=== PATIENT | male | born 1950 | race Caucasian/White ===

== ENCOUNTER 2016-11-25 16:07 | Emergency (ER) | payer OTHER ==
[~2016-11-25] VITALS: Ht 182.9 cm; Wt 102.1 kg
[~2016-11-25 16:07] MED LIST: ACETAMINOPHEN325 M1 PO; AGGRENOX 25 MG1 EACH PO; AMITRIPTYLINE H50 M3 PO; AMITRIPTYLINE H50 M4 PO; AMITRIPTYLINE100 MG PO; ARTIFICIAL TEAR15 M1 OPHTHALMIC; ASPIRIN EC81 M1 PO; BAYER CHEWABLE81 MG PO; CARVEDILOL12.5 MG PO; CELEXA 20 MG TA20 M1 PO; CLONAZEPAM 1 MG1 M1 PO; CLOTRIMAZOLE-BE15 GM TOP; COLACE100 MG PO; COZAAR100 MG PO; CYCLOBENZAPRINE5 MG PO; FISH OIL 1,001000 M1 PO; FISH OIL-OMEGA1 EACH PO; FLEXERIL PO; GLUCOPHAGE1000 MG PO; GLUCOPHAGE500 MG PO; KEFLEX500 MG PO; LEVEMIR SUBQ; MELATONIN10 M1 PO; METOPROLOL SUCC25 M1; NEURONTIN 300M300 M2 PO; NORCO 5-325 TA1 EACH PO; PERCOCET 10-321 EACH PO; PLAVIX 75 MG TA75 M1 PO; PRAVACHOL40 MG PO; RESTORIL30 MG PO; SIMVASTATIN40 MG PO; TOPROL XL50 MG PO; TRADJENTA5 MG PO; TRILIPIX135 MG PO; TYLENOL325 MG PO
== END 2016-11-25 18:34 | disposition home or self-care (01) ==
LOC: ER 16:07
DX: S16.1XXA Strain of muscle, fascia and tendon at neck level, initial encounter (principal); S09.90XA Unspecified injury of head, initial encounter; E11.9 Type 2 diabetes mellitus without complications; I10 Essential (primary) hypertension; G47.30 Sleep apnea, unspecified; I63.9 Cerebral infarction, unspecified; E78.5 Hyperlipidemia, unspecified; Z88.8 Allergy status to other drugs, medicaments and biological substances; W18.30XA Fall on same level, unspecified, initial encounter; Y93.89 Activity, other specified; Y92.89 Other specified places as the place of occurrence of the external cause; Y99.9 Unspecified external cause status

== ENCOUNTER 2016-12-08 16:40 | Emergency (ER) | payer OTHER ==
[~2016-12-08] VITALS: Ht 182.9 cm; Wt 100.7 kg
--- NOTE | ~2016-12-08 | EKG ---
[place] [address] [facility] [place] [address] ELECTROCARDIOGRAM REPORT Name: JONATAN MYERS [id number] Admission: 12/08/16 Attend Phys: Discharge: 12/08/16 Date of : 54 Report #: [id number] THIS REPORT FOR: //name// [facility] ED Test Date: 2016-12-08 Test Time: 17:51:23 Pat Name: JONATAN MYERS Department: Room: Gender: M Program Control Analyst: [facility] : 1950 Requested By: Doug Roberts Order Number: [id number] MD: Marcell Nguyen Measurements Intervals [place] Rate: 72 P: 55 OK: 176 QRS: 40 QRSD: 122 T: 24 QT: 395 QTc: 433 Interpretive Statements Sinus rhythm IVCD, consider atypical RBBB Compared to ECG 08/05/2015 00:07:41 No significant change was found Electronically Signed On 12-09-2016 8:59:41 CDT by Marcell Nguyen [email or web address] <ELECTRONICALLY SIGNED> By: Marcell Nguyen MD, [facility] 12/09/16 0859 1751 50 Marcell Nguyen MD, FACC /EPI
[2016-12-08] MEDS ORDERED: MELATONIN3 MG PO (17:03)
[2016-12-08 17:26] LABS: ABSOLUTE NEUTROPHILS 5.6 thou/uL (1.4-8.2); BASOPHILS 0.4 % (0.0-2.0); EOSINOPHILS 1.9 % (0.0-3.0); HEMATOCRIT 37.4 % (42.0-52.0); HEMOGLOBIN 12.7 gm/dL (14.0-18.0); LYMPHOCYTES 27.2 % (24.0-44.0); MANUAL DIFF NO; MCH 28.7 pg (26.0-34.0); MCHC 34.1 g/dL (28.0-37.0); MCV 84.3 fL (80.0-100.0); MONOCYTES 8.9 % (1.0-8.0); PLATELET COUNT 192 thou/uL (150-400); POLYS 61.6 % (36.0-66.0); RBC 4.44 mil/uL (4.50-6.00); RDW 13.8 % (10.5-14.5)
[2016-12-08 17:33] LABS: ANION GAP 9 mmol/L (7-16); BUN 11 mg/dL (7-18); CALCIUM 8.7 mg/dL (8.5-10.1); CHLORIDE 104 mmol/L (98-107); CO2 29 mmol/L (21-32); CREATININE 1.3 mg/dL (0.7-1.3); GLUCOSE 128 mg/dL (74-106); POTASSIUM 3.7 mmol/L (3.5-5.1); SODIUM 142 mmol/L (136-145)
[2016-12-08 17:41] LABS: TROPONIN-I < 0.04 ng/mL (<0.04-0.07)
== END 2016-12-08 19:32 | disposition home or self-care (01) ==
LOC: ER 16:40
PROVIDERS: Emergency Medicine
DX: S00.83XA Contusion of other part of head, initial encounter (principal); E86.0 Dehydration; E11.9 Type 2 diabetes mellitus without complications; Z86.73 Personal history of transient ischemic attack (TIA), and cerebral infarction without residual deficits; I10 Essential (primary) hypertension; E78.5 Hyperlipidemia, unspecified; G47.30 Sleep apnea, unspecified; Z88.8 Allergy status to other drugs, medicaments and biological substances; W10.9XXA Fall (on) (from) unspecified stairs and steps, initial encounter; Y93.89 Activity, other specified; Y92.094 Garage of other non-institutional residence as the place of occurrence of the external cause; Y99.9 Unspecified external cause status

== ENCOUNTER 2017-01-23 16:07 | Emergency (ER) | payer OTHER ==
[~2017-01-23] VITALS: Ht 182.9 cm; Wt 99.8 kg
[~2017-01-23 16:07] MED LIST changes: +MELATONIN3 MG PO
[2017-01-23] MEDS ORDERED: FLEXERIL PO (16:48)
== END 2017-01-23 17:15 | disposition home or self-care (01) ==
LOC: ER 16:07
DX: S16.1XXA Strain of muscle, fascia and tendon at neck level, initial encounter (principal); E11.9 Type 2 diabetes mellitus without complications; I10 Essential (primary) hypertension; E78.5 Hyperlipidemia, unspecified; G47.30 Sleep apnea, unspecified; Z88.6 Allergy status to analgesic agent; Z86.73 Personal history of transient ischemic attack (TIA), and cerebral infarction without residual deficits; W18.2XXA Fall in (into) shower or empty bathtub, initial encounter; Y93.89 Activity, other specified; Y92.89 Other specified places as the place of occurrence of the external cause; Y99.8 Other external cause status

== ENCOUNTER 2017-05-07 14:54 | Emergency (ER) | payer OTHER ==
[~2017-05-07] VITALS: Ht 182.9 cm; Wt 101.2 kg
[2017-05-07 16:01] LABS: CALCIUM 8.7 mg/dL (8.5-10.1); CREATININE 1.2 mg/dL (0.7-1.3); POTASSIUM 3.7 mmol/L (3.5-5.1)
[2017-05-07 16:12] LABS: PROTIME 10.2 Seconds (9.3-11.4)
[2017-05-07 16:13] LABS: APTT 21.9 Seconds (24.5-32.8)
[2017-05-07 16:15] LABS: HEMATOCRIT 36.7 % (42.0-52.0); HEMOGLOBIN 12.3 gm/dL (14.0-18.0); MCH 28.9 pg (26.0-34.0); MCHC 33.6 g/dL (28.0-37.0); MCV 86.2 fL (80.0-100.0); RBC 4.26 mil/uL (4.50-6.00)
== END 2017-05-07 20:11 | disposition short-term general hospital (02) ==
LOC: ER 14:54
PROVIDERS: Emergency Medicine
DX: S01.111A Laceration without foreign body of right eyelid and periocular area, initial encounter (principal); E11.9 Type 2 diabetes mellitus without complications; I10 Essential (primary) hypertension; E78.5 Hyperlipidemia, unspecified; G47.30 Sleep apnea, unspecified; Z86.73 Personal history of transient ischemic attack (TIA), and cerebral infarction without residual deficits; Z88.6 Allergy status to analgesic agent; W18.30XA Fall on same level, unspecified, initial encounter; Y93.01 Activity, walking, marching and hiking; Y92.481 Parking lot as the place of occurrence of the external cause; Y99.8 Other external cause status

== ENCOUNTER 2019-05-22 03:01 | Inpatient (IN) | payer OTHER ==
[~2019-05-22] VITALS: Ht 182.9 cm; Wt 105.2 kg
--- NOTE | ~2019-05-22 | EMS ---
[address] [address] EMS Patient Care Report Name: JONATAN MYERS Room #: REG JOHN Vaughan#: [id number] Admission: 05/22/19 Attend Phys: Discharge: Date of : 54 Report #: [id number] THIS REPORT FOR: //name// Report Transmitted: 05/22/2019 03:[address] [facility] MED-ACT Incident [id number] @ 05/22/2019 02:17 Incident Location [address] [place] [address] Patient ADRIAN MYERS Male, 68 Years 1950 Patient Address [address] [place] [address] Patient History Stroke/CVA,Hyperlipidemia,Type 2 Diabetes, Patient Allergies Other drug allergy, Patient Medications Metformin, Clonazepam, Metoprolol, Amitriptyline, Chief Complaint fall, dehydration, weak legs Disposition Transported No Lights/[place] Reason Falls Transported To [facility] Narrative Arrived on scene to find pt. sitting upright on the edge of his bed, attended to by family. Pt. was alert, tracking, in no obvious distress. Pt. stated he fell in the [place] and hit the wall with his back, shoulder and head. Pt. stated he was coming out of the bathroom when his legs went out from underneath him. [address] [address] EMS Patient Care Report Name: JONATAN MYERS Room #: REG Alexus#: [id number] Admission: 05/22/19 Attend Phys: Discharge: Date of : 54 Report #: [id number] Pt. denied neck and back pain and loss of consciousness. Pt. not taking blood thinners. Pt. stated he was concerned about his back and neck due to his age and wanted to get checked out. Pt. also reports being treated for sinus infection with antibiotics and steroids. Pt. stated "I feel clear and don't have sinus pressure." Pt. also reports not eating and drinking well and feeling dehydrated. Attempted to obtain orthostatic BP but pt. sat down before standing BP could be measured. BP increased in supine position as charted. Helped pt. to cot, moved cot to ambulance without incident. Gained IV access and administered NS as charted. Initial Vitals @02:50P: 108,SpO2: 100, @02:27BP: 102/73, @02:24P: 108,R: 16,BP: 102/77,Pain: 1/10,GCS: 15,Glucose: 192,SpO2: 98,Revised Trauma: 12, @02:35P: 113,R: 16,BP: 161/116,GCS: 15,SpO2: 98,Revised Trauma: 12, Assessments @02:24MENTAL:Person Oriented,Time Oriented,Event Oriented,Place Oriented,SKIN:Pale,HEENT:Neck/Airway: No Abnormalities,LUNG SOUNDS:Left Upper: No Abnormalities,Right Upper: No Abnormalities,Left Lower: No Abnormalities,Right Lower: No Abnormalities,ABDOMEN:Left Upper: No Abnormalities,Right Upper: No Abnormalities,Left Lower: No Abnormalities,Right Lower: No Abnormalities,PELVIS//GI:EXTREMITIES:Right Leg: Weakness,Left Leg: Weakness,Left Arm: Abnormal Pulse,PULSE:NEURO: Impression Dehydration Procedures @02:52Normal Saline (.9% NaCl) 350cc (18 ga) Site: Antecubital-RightResponse: ImprovedSucceeded Timeline 02:16,Call Received 02:16,Psap Call 02:17,Dispatched 02:17,En Route 02:23,On Scene 02:23,At Patient 02:24,BP: 102/77 M,PULSE: 108,RR: 16 R,SPO2: 98 Ox,ETCO2: ,B,PAIN: 1,GCS: 15, 02:27,BP: 102/73 M,PULSE: ,RR: R,SPO2: Ox,ETCO2: ,BG: ,PAIN: ,GCS: , 02:35,BP: 161/116 M,PULSE: 113,RR: 16 R,SPO2: 98 Ox,ETCO2: ,BG: ,PAIN: ,GCS: 15, [address] [address] EMS Patient Care Report Name: JONATAN MYERS Room #: REG [facility].#: [id number] Admission: 05/22/19 Attend Phys: Discharge: Date of : 54 Report #: [id number] 02:42,Depart Scene 02:50,BP: / M,PULSE: 108,RR: R,SPO2: 100 Ox,ETCO2: ,BG: ,PAIN: ,GCS: , 02:52,Normal Saline (.9% NaCl) 350cc 18 ga Site: Antecubital-Right,Response: ImprovedSucceeded, 02:54,At Destination 03:17,Call Closed Disclaimer v1.1 Copyright 2019 [employer] This EMS Care Summary contains data elements from the applicable legal record (which may be displayed differently). It is designed to provide pertinent information for the following purposes: continuity of care, clinical quality, and state data reporting. The complete legal record is available to ED staff and administrators of the receiving hospital in [employer]'s Patient Tracker. All data is provided "as is."
[2019-05-22 03:05] VITALS: BP 167/99
[2019-05-22 04:41] LABS: ABSOLUTE NEUTROPHILS 7.6 thou/uL (1.4-8.2); BASOPHILS 0.2 % (0.0-2.0); HEMATOCRIT 38.9 % (42.0-52.0); LYMPHOCYTES 15.9 % (24.0-44.0); MCH 29.4 pg (26.0-34.0); MCHC 33.5 g/dL (28.0-37.0); MCV 87.6 fL (80.0-100.0); MONOCYTES 6.8 % (1.0-8.0); PLATELET COUNT 205 thou/uL (150-400); POLYS 77.1 % (36.0-66.0); RBC 4.43 mil/uL (4.50-6.00); RDW 14.2 % (10.5-14.5); WBC 9.9 thou/uL (4.0-11.0)
[2019-05-22 04:55] LABS: ANION GAP 11 mmol/L (7-16); BUN 17 mg/dL (7-18); CALCIUM 9.3 mg/dL (8.5-10.1); CHLORIDE 100 mmol/L (98-107); CO2 27 mmol/L (21-32); CREATININE 1.5 mg/dL (0.7-1.3); GLUCOSE 185 mg/dL (74-106); POTASSIUM 3.9 mmol/L (3.5-5.1); SODIUM 138 mmol/L (136-145)
[2019-05-22 05:04] LABS: TROPONIN-I <0.06 ng/mL (<0.06)
[2019-05-22 06:26] LABS: URINE BILIRUBIN NEGATIVE (Negative); URINE BLOOD 2+ (Negative); URINE CLARITY CLEAR; URINE COLOR YELLOW; URINE GLUCOSE-RANDOM* NEGATIVE (Negative); URINE KETONES 2+ (Negative); URINE LEUKOCYTES-REFLEX TRACE (Negative); URINE NITRITE-REFLEX NEGATIVE (Negative); URINE PROTEIN (DIPSTICK) NEGATIVE (Negative); URINE UROBILINOGEN 0.2 E.U./dl (0.2-1.0)
[2019-05-22 06:34] LABS: CASTS None Seen /LPF (None Seen); CRYSTALS None Seen /LPF (None Seen); SQUAMOUS None Seen /LPF (0-3); URINE RBC 3-10 Few /HPF (0-2)
[2019-05-22 06:35] LABS: BACTERIA-REFLEX 1-9 Few /HPF (None Seen); URINE WBC-REFLEX None Seen /HPF (0-5)
[2019-05-22 09:16] VITALS: BP 205/107
[2019-05-22 10:30] VITALS: BP 153/94
[2019-05-22 10:53] LABS: TSH 0.612 uIU/mL (0.358-3.740)
[2019-05-22 14:45] VITALS: BP 116/60
[2019-05-22 15:01] VITALS: BP 157/91
--- NOTE | 2019-05-22 20:02 | NUR ---
ASSUMED CARE OF PATIENT APPROX. 1030. PATIENT A&OX4, VSS, C/O OF HEADACHE. MEDICATION AND FLUIDS GIVEN ORDERED. PATIENTS URINE RED WITH A BLOOD CLOT. WILL NOTIFY DOCTOR. NO SIGNS OF DISTRESS. PATIENT DENIES BURNING WITH URINATION. WILL CONTINUE TO MONITOR.
[2019-05-22 20:05] VITALS: BP 144/91
--- NOTE | 2019-05-23 03:10 | NUR ---
PATIENT AOX3 CONFUSED AND FORGETFUL AT TIMES. PATIENT WAS TRYING TO GO TO THE BATHROOM MULTIPLE TIMES WITH NO SUCESS. BLADDER SCAN DONE PATIENT HAD 900ML RETENSION. CALLED LANDSCAPING SUPERVISOR NEW ORDER TO STRAIGHT CATH AND GIVE FLOMAX. AT AROUND 0200.PATIENT HAD 1000 ML OUT AFTER STRAIGHT CATH. PATIENT IN BED ASLEEP AT THIS TIME BREATHING REGULAR AND UNLABOURED.
--- NOTE | 2019-05-23 05:50 | NUR ---
SEE HUMAN RESOURCES INTERN FLOW SHEET.
[2019-05-23 07:35] VITALS: BP 149/84
--- NOTE | 2019-05-23 08:52 | EKG ---
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 : 1950 Requested By: Doug Roberts Order Number: [id number] MD: Marcell Nguyen Measurements Intervals [place] Rate: 100 P: 47 VT: 187 QRS: 25 QRSD: 143 T: 10 QT: 391 QTc: 505 Interpretive Statements Sinus tachycardia Right ventricular conduction delay Compared to ECG 06/08/2017 15:37:31 No significant change was found Electronically Signed On 05-23-2019 8:51:58 CDT by Marcell Nguyen [email or web address] <ELECTRONICALLY SIGNED> By: Marcell Nguyen MD, [facility] 05/23/19 0851 0324 3 Marcell Nguyen MD, FACC /EPI
--- NOTE | 2019-05-23 09:04 | EKG ---
[address] [address] ELECTROCARDIOGRAM REPORT Name: JONATAN MYERS Room #: 455-P ADM IN M.R.#: [id number] Admission: 05/22/19 Attend Phys: Felipe Ortega MD Discharge: Date of : 54 Report #: [id number] THIS REPORT FOR: //name// [facility] Test Date: 2019-05-23 Test Time: 05:05:01 Pat Name: JONATAN MYERS Department: Room: 455 P Gender: M Rn First Assist: saud : 1950 Requested By: Savana Alex Order Number: [id number] MD: Marcell Nguyen Measurements Intervals [place] Rate: 97 P: 55 WA: 167 QRS: 33 QRSD: 116 T: 21 QT: 370 QTc: 470 Interpretive Statements Sinus rhythm Poor R wave progression Compared to ECG 06/08/2017 15:37:31 No significant change was found Electronically Signed On 05-23-2019 9:03:54 CDT by Marcell Nguyen [email or web address] <ELECTRONICALLY SIGNED> By: Marcell Nguyen MD, [facility] 05/23/19 09 0505 0505 Marcell Nguyen MD, FAC /EPI
[2019-05-23 14:24] VITALS: BP 162/81
--- NOTE | 2019-05-23 16:22 | NUR ---
PT ADMITTED RELATED TO S/P FALL; DIZZINESS, GENERALIZED WEAKNESS. CM REVIEWED CHART AND SPOKE WITH CARE TEAM. CM MET WITH PT AT BEDSIDE THIS DAY. PT IS A&O X4. CM ROLE INTRODUCED. PT INDICATED HE LIVES IN A DUPLEX WITH HIS WITH 2 STEPS TO ENTER AND 12 STEPS TO BASEMENT WHERE HE GOES REGULARLY. HE INDICATED HE HAD USED A A 4WW WITH A SEAT TO ASSIST WITH [facility]. HE INDICATED THAT HE DOES OP PT HERE AT [facility]. HE INDICATED HIS PCP IS DR. HUBBARD AT . PT INDICATED HE HAS A CPAP AT HOME THROUGH [facility] BUT THAT HE DOESN'T USE IT REGULARLY HE SHOULD. PT INDICATED HIS HAD GONE TO VISIT HIS DTR IN [facility] AND THAT SHE WILL BE RETURNING HOME TOMRROW INSTEAD OF NEXT THURSDAY. PT INDICATED HE PLANS TO RETURN HOME ONCE MEDICALLY STABLE. PT WAS TO HAVE MRIS TODAY. CM TO FOLLOW INDICATED WITH DC PLANNING.
[2019-05-23 20:38] VITALS: BP 174/89
--- NOTE | 2019-05-23 21:22 | NUR ---
PT A&OX4, VSS, DENIES PAIN. PATIENT SLEPT THROUGHOUT DAY, STATING HE HASNT HAD MUCH SLEEP IN THE PAST TWO DAYS. PATIENT DOWN TO MRI. BENZ CATH PLACED D/T URINARY RETENTION. BLADDER SCANNED 625, 550 PULLED OFF AFTER BENZ INSERTION, URINE YELLOW. ORDERS FOR BENZ IN. NO SIGNS OF DISTRESS. DENIES SOA AND CHEST PAIN. PATIENT DENIES DIZZINESS, BUT STILL IS UNSTEADY ON HIS FEET WHEN TRANSFERRING TO BSC. BSC PLACED RIGHT NEXT TO BED, FOR FAST PIVOT TO BSC. WILL CONTINUE TO MONITOR.
[2019-05-23 22:00] VITALS: BP 174/89
[2019-05-23 23:51] VITALS: BP 164/97
--- NOTE | 2019-05-24 04:04 | NUR ---
PATIENT IN BED AND WATCHING TV DURING SHIFT CHANGE. PATIENT WAS ALERT AND TALKATIVE. ASSUMED PATIENT CARE AT 2130. PATIENT WAS DROWSY AT THE TIME. PATIENT EXPRESSED LACK OF SLEEP IN THE PAST FEW DAYS. PATIENT SEEMED TO TALK IN JARGON APHASIA. FALL PRECAUTIONS IN PLACE. WILL CONTINUE TO MONITOR.
--- NOTE | 2019-05-24 04:14 | NUR ---
UPON ROUNDNG, PATIENT WAS FOUND SNORING AND APPEARED TO BE SLEEPING SOUNDLY. PATIENT AWOKE BY SOUND OF CATHETER EMPTYING. PATIENT STATED THAT HE "NEEDED TO USE THE BATHROOM". PATIENT WAS RE-EDUCATED ON URINARY CATHETER AND ITS FUNCTION. PATIENT CONTINUED TO SPEAK IN JARGON APHASIA AND WENT BACK TO SLEEP. FALL PRECAUTIONS STILL IN PLACE. WILL CONTINUE TO MONITOR.
[2019-05-24 04:52] VITALS: BP 157/98
[2019-05-24 08:00] VITALS: BP 179/95
[2019-05-24 15:00] VITALS: BP 145/80
--- NOTE | 2019-05-24 15:52 | NUR ---
[facility] ASSESSED AND INDICATED THAT PT LOOKS LIKE GOOD CANDIDATE FOR ADMISSION. PT IS AGREEABLE TO GOING TO [facility]. AWAITING NEURO CONSULT. CM TO FOLLOW INDICATED WITH DC PLANNING.
[2019-05-24 18:36] LABS: FOLIC ACID 14.7 ng/mL (8.6-58.9); TSH 2.436 uIU/mL (0.358-3.740)
[2019-05-24 20:36] VITALS: BP 145/73
[2019-05-25 03:07] LABS: IgA 184 mg/dL (61-437); IgG 789 mg/dL (700-1600); IgM 57 mg/dL (20-172)
[2019-05-25 05:21] LABS: ALBUMIN 3.3 g/dL (3.4-5.0); CALCIUM 8.3 mg/dL (8.5-10.1); CREATININE 1.2 mg/dL (0.7-1.3); PHOSPHORUS 3.3 mg/dL (2.5-4.9)
--- NOTE | 2019-05-25 05:38 | NUR ---
PROGRESS PT AND FAMILY UPSET WITH PRIOR CARE AT START OF SHIFT. DSCUSSED POC WITH PT AND SPOUSE AND THEY WERE AGREEABLE AND PLEASED WITH PLAN. PT STATED HE WAS VERY TIRED AND WANTED TO SLEEP THROUGHOUT SHIFT. CARES DONE EARLY IN SHIFT AND PT SLEPT SOUNDLY THROUGHOUT NIGHT. HOURLY ROUNDS COMLETED QUIETLY AND PT WAS NOT DISTURBED. WAS UP IN CHAIR AND ASSISTED TO BED WITH ASSIST OF 1 . ACCUCHECK COMPLETED WNL NO SSI GIVEN. FALL PRECAUTIONS IN PLACE. CONTINUE POC.
[2019-05-25 08:55] VITALS: BP 159/100
[2019-05-25 14:18] VITALS: BP 133/77
--- NOTE | 2019-05-25 15:35 | NUR ---
PT HAD BEEN ACCEPTED TO [facility] ONCE MEDICALLY STABLE. PT WAS TO HAVE AN MRI WITH CONTRAST AWAITING RESULTS. SHOULD PT BE MEDICALLY STABLE TO DC TO [facility] THIS EVENING CONTACT .
[2019-05-25] MEDS ORDERED: FLOMAX0.4 MG PO (17:11)
[2019-05-25] MEDS ORDERED: ASPIRIN325 PO (17:11)
[2019-05-25] MEDS ORDERED: ENOXAPARIN40 MG/0.1 SUBQ (17:11)
--- NOTE | 2019-05-25 19:29 | NUR ---
ASSUMED CARE OF PATIENT AT 0715, PATIENT ALERT AND ORIENTED, BUT CAN BE FORGETFUL. PATIENT DENIES PAIN THIS SHIFT. PATIENT WENT DOWN FOR REPEAT MRI OF SPINE. BLOOD SUGAR MONITORING ORDERED. PATIENT HAD RIGHT AC IV IN PLACE, DISCONTINUED PRIOR TO DISCHARGE TO REHAB/[facility]. REPORT GIVEN TO CARLENE/RN. ALL PERSONAL BELONGINGS SENT WITH THE PATIENT.
[2019-05-25 21:39] LABS: CHOLESTEROL 171 mg/dL (<200); HDL CHOLESTEROL 39 mg/dL (>40); LDL CHOLESTEROL 101 mg/dL (<100); TC:HDL 4.4 Ratio (Not establshd); TRIGLYCERIDE 155 mg/dL (<150); VLDL 31 mg/dL (<40)
[2019-05-25 21:48] LABS: SERUM ASSESSMENT Clear
[2019-05-27 09:11] LABS: ANA INTERPRETATION Negative (Negative)
== END 2019-05-25 19:38 | DRG 92 ==
LOC: ER 03:01 → 4W 07:12 → EROBS 07:12 → 4W 09:55
PROVIDERS: Emergency Medicine; Hospitalist; Psychiatry & Neurology Neurology; ADMIT Internal Medicine
PROC: 3E0234Z Introduction of Serum, Toxoid and Vaccine into Muscle, Percutaneous Approach (ICD-10-PCS; principal; 2019-05-24)
DX: R27.0 Ataxia, unspecified (principal); I69.354 Hemiplegia and hemiparesis following cerebral infarction affecting left non-dominant side; I10 Essential (primary) hypertension; E11.9 Type 2 diabetes mellitus without complications; R33.9 Retention of urine, unspecified; M47.812 Spondylosis without myelopathy or radiculopathy, cervical region; M48.02 Spinal stenosis, cervical region; M48.061 Spinal stenosis, lumbar region without neurogenic claudication; G47.33 Obstructive sleep apnea (adult) (pediatric); M19.90 Unspecified osteoarthritis, unspecified site; Z99.81 Dependence on supplemental oxygen; E78.5 Hyperlipidemia, unspecified; Z79.899 Other long term (current) drug therapy; Z79.82 Long term (current) use of aspirin; Z79.84 Long term (current) use of oral hypoglycemic drugs; Z88.8 Allergy status to other drugs, medicaments and biological substances; Z23 Encounter for immunization
CPT/HCPCS: 10040

== ENCOUNTER 2019-05-25 15:36 | Inpatient (IN) | payer OTHER ==
[~2019-05-25] VITALS: Ht 182.9 cm; Wt 104.2 kg
[2019-05-25] MEDS ORDERED: FLOMAX0.4 MG PO (17:11)
[2019-05-25] MEDS ORDERED: ASPIRIN325 PO (17:11)
[2019-05-25] MEDS ORDERED: ENOXAPARIN40 MG/0.1 SUBQ (17:11)
[2019-05-25 19:10] VITALS: BP 141/96
--- NOTE | 2019-05-26 01:56 | NUR ---
PT ADMITTED TO 513 LAST EVENING AT 1850. PT ALERT AND ORIENTED X 4 BUT FORGETFUL. BENZ PATENT DRAINING ADEQUATE AMTS DARK YELLOW URINE. SKIN INTACT. PT TOOK HS MEDS WITH WATER WITHOUT DIFFICULTY. PT ORIENTED TO ROOM AND USE OF CALL LIGHT. DISCUSSED FALL PRECAUTIONS WITH PT. UNIT HANDBOOK GIVEN TO PT. PT DENIES PAIN OR DISCOMFORT. BED ALARM ON FOR SAFETY. PT APPEARS TO BE SLEEPING ON HOURLY ROUNDS.
[2019-05-26 05:29] LABS: HEMATOCRIT 38.3 % (42.0-52.0); MCH 30.1 pg (26.0-34.0); MCHC 33.9 g/dL (28.0-37.0); MCV 88.8 fL (80.0-100.0); RBC 4.31 mil/uL (4.50-6.00); RDW 14.1 % (10.5-14.5); WBC 7.4 thou/uL (4.0-11.0)
[2019-05-26 05:37] LABS: CALCIUM 8.9 mg/dL (8.5-10.1); CREATININE 1.3 mg/dL (0.7-1.3); POTASSIUM 3.5 mmol/L (3.5-5.1)
[2019-05-26 10:00] VITALS: BP 170/112
--- NOTE | 2019-05-26 10:38 | NUR ---
chart review, pt up in bed with keypuncher in room, physical therapy in room and barbara sister in law pat as well. pt is a & o x 3 with some forgetfulness, flat affect and able to make his needs know. intro to dcp, transition of care and team meetings. pt lives in "duplex with his who was out of town when he came into hospital had to have golf friend drive him here. havent driven in 6 weeks, had falls, 2 steps to enter home and 12 steps to the basement. has 4ww. my is back but sick now so she might not be coming up today"/barbara. will cont following as needed for dc needs.
[2019-05-26 19:39] VITALS: BP 134/73
--- NOTE | 2019-05-26 19:46 | NUR ---
PATIENT ALERT AND ORIENTED AND COOPERATIVE WITH POC. SISTER IN LAW AT BEDSIDE THROUGHOUT THE DAY. BP WAS HIGH THIS AM THEN RE-CHECK WNL. ZIYAD LUO AWARE. POC GLUCOSE WNL. PATIENT ON ORTHOSTATIC PRECAUTIONS DUE TO BECOMING LITTLE DIZZY DURING PT. SPOKE WITH PUJA ABOUT PLACING PATIENT ON CARB CONTROL DIET. CURRENT DIET IS REGULAR.
--- NOTE | 2019-05-27 02:36 | NUR ---
PT ALERT AND ORIENTED X 4. BENZ PATENT DRAINING ADEQUATE AMTS DARK YELLOW URINE. BLOOD SUGAR 166 AT HS. INSULIN GIVEN ORDERED. PT DENIES PAIN OR DISCOMFORT. BED ALARM ON FOR SAFETY. PT APPEARS TO BE SLEEPING ON HOURLY ROUNDS.
[2019-05-27 10:01] VITALS: BP 166/98
--- NOTE | 2019-05-27 10:27 | NUR ---
ASSUMED CARE AT 0700. PATIENT IS ALERT AND ORIENTED X4. PATIENT HANLEY, ASSISTANT EDUCATION DIRECTOR ARE EQUAL. LUNGS ARE CLEAR AND DEMINISHED. ABD IS SOFT WITH BSX4. PATIENT HAS BENZ TO DD, DRAINING PÉREZ COLORED URINE. UP WITH WALKER AND GAIT BELT AND ASSIST OF 1 STAFF. PATIENT CONTINUES ON ORTHOSTATIC PRECAUTIONS. UP IN BED FOR MEALS. FALL AND SAFETY PROTOCOLS IN PLACE. DENIES PAIN AT THIS TIME. CONTINUES TO PROGRESS TOWARDS D/C GOALS. WILL CONTINUE TO MONITER.
[2019-05-27 19:48] VITALS: BP 130/70
--- NOTE | 2019-05-27 22:35 | NUR ---
PT SITTING UP IN CHAIR IN ROOM. SMILING TALKING GOOD EYE CONTACT WITH STAFF DURING CONVERSATIONS. DISCUSSED WHAT HIS MEDICATIONS WERE FOR BEFORE NURSE PROVIDED THEM. PT REQUESTED TO WALK TO BED. PT STATED THAT HE USES A GAIT BELT AND WALKER. PT ALSO STATED THAT HE NEEDED YELLOW SOCKS PUT ON ONCE HIS SHOES ARE REMOVED FOR BED. FSBS COMPLETED, PT REQUESTED SUGAR FREE SNACK. BENZ TO CHUYITA. PT DISCUSSED HOW HE HAD A STROKE IN 2017 AND THAT HE WAS FALLING FREQUENTLY PRIOR TO THIS ADMISSION AND THAT HE NOW NEEDS THERAPY TO HELP PREVENT HIS FALLS.
--- NOTE | 2019-05-28 07:57 | NUR ---
ASSUMED CARE AT 0700. PATIENT IS ALERT AND ORIENTED X4. PATIENT HANLEY'S, BONE PROCESS OPERATOR ARE EQUAL. LUNGS ARE CLEAR. ABD IS SOFT WITH BSX4. PATIENT HAS BENZ TO DD, DRAINING PÉREZ COLORED URINE. FALL AND SAFETY PROTOCOLS IN PLACE. DENIES PAIN AT THIS TIME. CONTINUES TO PROGESS TOWARDS D/C GOALS. WILL CONTINUE TO MONITER.
[2019-05-28 08:00] VITALS: BP 169/108
--- NOTE | 2019-05-29 02:39 | NUR ---
assumed care at approx 1900 evening 05/28. pt lying in bed at change of shift with head of bed elevated. pt alert and oriented x4, appropriate and cooperative. lucio to dd with yellow urine to bag. pt took hs meds with water tolerating well. pt appears to be sleeping soundly with hourly rounding checks. bed alarm on and call light in reach. will continue to monitor.
--- NOTE | 2019-05-29 17:03 | HC ---
[facility] [place] [address] CONSULTATION Name: BREJONATAN CARPENTER Kesha Room #: 513-P [facility] IN M.R.#: [id number] Admission: 05/25/19 Attend Phys: Jonatan Mcclellan MD Discharge: Date of : 54 Report #: [id number] THIS REPORT FOR: //name// CC: Jonatan Mcclellan DATE OF SERVICE: 05/28/2019 NEUROBEHAVIORAL STATUS EXAMINATION ATTENDING PHYSICIAN: Jonatan Mcclellan MD DIE FINISHER: Kevin Gonzalez, PhD. CLINICAL PRESENTATION: The patient is a 68-year-old male admitted to the rehabilitation unit at [facility] for comprehensive inpatient rehabilitation program. He initially was admitted to the hospital on 05/22/2019 following a fall in which he struck his head. There was no evidence of acute changes on MRI. The patient has a history of a cerebrovascular accident about 9 years ago with a residual left upper extremity weakness and decreased sensation. Additionally, he is reported to have had an MRI of his cervical spine, which revealed changes at C2 through C7 with concern for possible demyelinating disease. The patient has had difficulty with gait that includes developing momentum while walking and having trouble slowing himself down. About 2 years ago, he sustained a fall, in which he hit his head because he was unable to stop walking and struck his head on a sidewalk curb. His assessment on admission to the rehabilitation unit is gait ataxia, demyelinating disease, history of falls, prior stroke with late effect, urinary retention, hypertension, dyslipidemia, obstructive sleep apnea and diabetes mellitus. A complete description of his medical condition and history can be found in his medical record. Neuropsychological consultation was requested to provide assistance in the assessment of cognitive and emotional status and to provide recommendations and services. Prior to this most recent admission, he was living independently with his in their home. The patient has one child that lives in [place]. His mother about 2 years ago and he is reported to have had a difficult emotional reaction to her loss. He has been very sedentary with tiredness and fatigue reported by his . The patient is reported to manage his own medication. However, his indicates concern that he has not been taking his medication carefully as he has had episodes in the past in which he overmedicated himself. Family history [facility] [address] [place] [address] CONSULTATION Name: JONATAN MYERS Room #: 513-P [facility] IN ..#: [id number] Admission: 05/25/19 Attend Phys: Jonatan Mcclellan MD Discharge: Date of : 54 Report #: [id number] of alcohol abuse in his father is reported. It should be noted that the patient is reported to have sleep apnea, but not successfully utilizing his CPAP. He had been driving and independent with IADLs until 2 months ago. He has not returned to driving for the last couple of months because of his 's concern about his ability to maintain adequate alertness. The patient is a college graduate. He is retired from work in a [employer] business. His nursing home was about 6 years ago after having sustained a cerebrovascular accident. His has noticed changes in cognition that are of about one year's duration in which memory and general cognitive functioning is described as poor. History of treatment for anxiety is reported. TECHNIQUES UTILIZED: Clinical interview, review of medical records, staff consultation and behavioral observation, mini mental status exam 2 standard version, clock drawing and verbal fluency assessment (letter and category), family interview -- . EXAMINATION FINDINGS: The patient was very drowsy and somnolent during my initial interview. He was very difficult to arouse and the initial assessment was postponed until another opportunity in which he would be able to maintain alertness. The assessment was completed after he was more alert. He accurately described events surrounding his admission. However, he reports having amnestic episodes within the last week, e.g., him obtaining an MRI not remembering that he was alert and talking to others. He describes his symptoms to include tiredness and fatigue. Difficulty with memory, word finding, planning and problem solving are noted by his along with increasing sedentary and intermittent periods of extreme sleepiness. His performance on the MMSE 2 brief version is within normal limits with a raw score of 14/16. He was 3/3 for initial registration, 5/5 for orientation to time, 5/[address] and 1/3 for immediate recall of 3 items after a brief time delay and distraction. His performance on the MMSE 2 standard version was within normal limits with a raw score of 27/30. He was 5/5 for serial sevens, 2/2 for naming, 1/1 for repetition, 3/3 for auditory comprehension. He could read and follow single command and write a sentence. The patient was unable to copy a simple geometric design. Suggested is decreased visual spatial construction. Performance on clock drawing was within normal limits. Letter fluency was extremely low with a raw score of 8, T score 19, percentile rank of less than 1. Category fluency was extremely low with a raw score of 21, [facility] [address] [place] [address] CONSULTATION Name: JONATAN MYERS Room #: 513-P [facility] IN .R.#: [id number] Admission: 05/25/19 Attend Phys: Jonatan Mcclellan MD Discharge: Date of : 54 Report #: [id number] T score 20, percentile rank of less than 1. Overall total fluency was extremely low with a raw score of 29, T score of 19 and percentile rank of less than 1. When alert, he is well oriented to place and time. However, while alert, he is presenting with severe deficits in verbal fluency. Deficits in verbal fluency are often seen with executive dysfunction and poor thought organization. This patient's presentation appears consistent with neurocognitive disorder. DIAGNOSTIC IMPRESSION: Neurocognitive disorder, unspecified, without behavior disorder -- extent to be determined, likely in the mild to moderate range. Generalized anxiety disorder. RECOMMENDATIONS: The patient is taking a variety of medications that are exceptionally sedating. His medications include amitriptyline 100 mg at bedtime, clonazepam 2 mg at bedtime and temazepam 30 mg at bedtime. It should be noted that the patient has been diagnosed with sleep apnea and is not utilizing his CPAP. The use of benzodiazepines with sleep apnea can result in hypoxic/anoxic episodes. Additionally, the degree of sedation is quite severe during the day and may be a consequence of sedating medication. Recommended is reducing medication with sedating features, However, it should be noted that at times it is necessary to use a medication even though it has an adverse effect on cognition. The patient may benefit from psychiatric consultation to assist in selection of an antidepressant medication with anxiolytic features that can be substituted for medications with anticholinergic effects, i.e., amitriptyline. An outpatient neuropsychological evaluation is indicated to clarify the severity of cognitive status. At this time, the patient requires assistance in management of medication. Driving should further be discontinued until a more formal neuropsych assessment can clarify cognitive functioning. Speech therapy will be helpful for assisting in the development of compensatory strategies and cognitive stimulation. Assistance in medical and financial decision making is recommended at this time. Thank you very much for allowing me to provide the consultation on this patient. <ELECTRONICALLY SIGNED> By: Kevin Gonzalez, PhD 05/29/19 1703 1724 1432 Kevin Gonzalez, PhD /nt
[2019-05-29 18:00] VITALS: BP 146/95
--- NOTE | 2019-05-29 20:05 | NUR ---
PATIENT ALERT AND ORIENTED BUT VERY SLEEPY INDICATING HE PROBALBLY TOOK TOO MUCH SLEEPING MEDS LAST NIGHT. SISTER IN LAW AT BEDSIDE THIS AFTERNOON. PATIENT HAD BM THIS AM. PATIENT WALKED TO BATHROOM THIS AM, BUT WAS IN BED MOST OF THE DAY INDICATING HE WAS SLEEPY.
[2019-05-29 20:12] VITALS: BP 139/68
--- NOTE | 2019-05-30 02:30 | NUR ---
assumed care at approx 1900 evening 05/29. pt sitting up in recliner at change of shift. pt alert and oriented x4, appropriate and cooperative. lucio to dd with concentrated urine in bag. encouraged pt to drink fluids. pt assisted into bed and pt appears to be sleeping soundly with hourly rounding checks. bed alarm on and call light in reach. will continue to monitor.
[2019-05-30 07:20] VITALS: BP 157/94
--- NOTE | 2019-05-30 10:36 | NUR ---
Received awake on bed. Due medications given as prs
[2019-05-30 11:20] VITALS: BP 131/82
[2019-05-30 11:23] VITALS: BP 89/53
--- NOTE | 2019-05-30 11:41 | NUR ---
NOTED PT HAD NOT BEEN CHECKED YET TODAY FOR ORTHOSTATIC BP/P. LYING BP/P ALREADY RECORDED, SITTING IS 131/82 AND PULSE 80, NO COMPLAINTS. STANDING PT C/O DIZZINESS, AND BP IS 89/53. PT LOSING BALANCE, SLIGHTLY SWAYING C STANDING. HR 95. DISCUSSED INCREASING ORAL FLUID INTAKE AND PT STATED THAT HE IS DRINKING MUCH HE CAN. PT TO METALLURGICAL TECHNICIAN IN WC.
[2019-05-30 19:25] VITALS: BP 141/85
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
[2019-05-31 07:30] VITALS: BP 160/100
--- NOTE | 2019-05-31 12:47 | NUR ---
team meeting, recommendation: dc , follow up outpt neuropsych. to assist with bills and pills. HH (pt, ot, st, nursing and sw) and family to look into life alert.
--- NOTE | 2019-05-31 16:05 | NUR ---
lonnie sent home health referral to [facility]
--- NOTE | 2019-05-31 18:54 | NUR ---
ASSUMED CARE OF PT AT 0800. PT IS A&OX3. IS ON ROOM AIR. IS STABLE. DENIES PAIN. IS UP WITH 1 ASSIST, GB, WALKER. HAS LEFT SIDED WEAKNESS. FALL PRECAUTIONS & HOURLY ROUNDING MAINTAINED. BENZ IS IN PLACE. PT HAS ORTHOSTATIC BPS. FLUIDS ENCOURAGED. PT IS DRINKING MORE FLUIDS. NEED ORDER & PLAN FOR BENZ D'C FROM HOSPITALIST. WILL COMMUNICATE TO NIGHT NURSE. LABS & VITALS REVIEWED. PT IS CURRENTLY LYING IN BED CALL LIGHT WITHIN REACH. WILL CONTINUE TO MONITOR.
--- NOTE | 2019-06-01 00:24 | NUR ---
PT ASSESSMENT COMPLETED AND VSS. MEDS GIVEN ORDERED AND WELL TOLERATED. ORTHOSTATIC BP COMPLETED. C/O OF GUERRERO. PT STATES THAT HE HAS A HISTORY OF GUERRERO PROBLEMS. CONTACTED BITUMASTIC APPLIER WIL AND GOT AN ORDER FOR TYLENOL. PT DID NOT WANT TO BE BOTHERED WITH TYLENOL AND HE WAS ALREADY SLEEPING AND APPEARS COMFORTABLE AT THIS TIME. WILL CONTINUE TO MONITOR FREQUENTLY.
--- NOTE | 2019-06-01 10:32 | NUR ---
ASSUMED CARE AT 0700. PATIENT IS ALERT AND ORIENTED X4. PATIENT HANLEY'S, WAREHOUSE ANALYST ARE EQUAL. LUNGS ARE CLEAR. ABD IS SOFT WITH BSX4. PATIENT IS UP WITH GAIT BELT AND ASSIST OF 1 STAFF AND WALKER TO BR FOR BM'S. PATIENT HAS BENZ TO DD, DRAINING PÉREZ COLORED URINE. PLAN TRIAL STARTING AFTER LUNCH. FALL AND SAFETY PROTOCOLS IN PLACE. DENIES ANY PAIN AT THIS TIME. CONTINUES TO PROGESS TOWARDS D/C GOALS. WILL CONTINUE TO MONITER.
--- NOTE | 2019-06-01 13:11 | H ---
[facility] [place] [address] HISTORY AND PHYSICAL Name: LUCIAJONATAN Rebolledo Room #: 513-P ADM IN M.R.#: [id number] Admission: 05/25/19 Attend Phys: Jonatan Mcclellan MD Discharge: Date of : 54 Report #: [id number] THIS REPORT FOR: //name// CC: Jonatan Mcclellan DATE OF SERVICE: 05/25/2019 POST-ADMISSION PHYSICIAN EVALUATION HISTORY OF PRESENT ILLNESS: The patient was admitted for acute in-hospital inpatient rehabilitation. The patient originally was admitted to [facility] on 05/22/2019 after a fall at home. He hit his head, but no loss of consciousness. MRI of the head showed no acute changes. He has a history of a prior CVA 9 years ago with left upper extremity weakness, decreased sensation. MRI of the cervical spine showed changes at C2 through C7, concerning for possible demyelinating disease. He did have some neural foraminal stenosis. He also has some urinary retention requiring a Carcamo catheter to be placed. 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 He has the falls with a history of stroke. Recommendations were that the patient needed further workup unless he was interested to pursue it further. Recommendations were for symptomatic treatment and rehabilitation, it was thought that immunomodulation at this age could actually complicated course. The patient does have gait ataxia and has had a functional decline from his prior level and has been admitted for acute in-hospital inpatient rehabilitation. Please see the full history and physical dictation. Agree with the examination findings as noted. With my tscf-da-kpsa examination. PHYSICAL EXAMINATION: GENERAL: The patient is alert. VITAL SIGNS: Temperature 97.6, pulse 61, respirations 18. He is alert, pleasant. HEAD, EYES, EARS, NOSE, AND THROAT: Appeared to be benign. EOMs were full. Face symmetric. CHEST: Sounded clear to auscultation. CARDIOVASCULAR: Regular rate and rhythm. ABDOMEN: Bowel sounds positive, nontender. GENITOURINARY AND RECTAL: Deferred. EXTREMITIES: He has functional range of motion of both upper extremities. Strength is a grade 4- to 4/5. DTRs are trace to 1. Lower extremities functional range of motion with strength grade 4 to 4-/5. DTRs are decreased. He does have some mild ataxia with gait. ASSESSMENT: 1. [place] [address] HISTORY AND PHYSICAL Name: JONATAN MYERS Room #: 513-P [facility] IN ..#: [id number] Admission: 05/25/19 Attend Phys: Jonatan Mcclellan MD Discharge: Date of : 54 Report #: [id number] 2. Demyelinating disease ("burnt out" per Neurology). 3. History of falls. 4. Prior stroke with late effect. 5. Urinary retention, has a Carcamo catheter, is on Flomax. 6. Hypertension. 7. Dyslipidemia. 8. Obstructive sleep apnea. 9. Diabetes mellitus. PLAN: The patient has been admitted for acute in-hospital inpatient rehabilitation. Again, please see the full admission history and physical. From a postadmission physician evaluation perspective, there are no relevant changes since the preadmission screening. Please see the above review of prior and current medical and functional conditions and comorbidities. Please see the patient's previous and current functional status. As far as risk of complications, the patient has multiple medical comorbidities as noted above. The initial plan of care involves the interdisciplinary acute inpatient rehabilitation program with goal of maximizing his functional independence he can hopefully return back to his prior living situation. Prognosis is reasonably good with estimated length of stay probably 7-14 days pending progress. Potential barriers would include his above noted multiple medical comorbidities and decreased functional status. The patient meets diagnostic criteria for an acute in-hospital inpatient rehabilitation stay. He meets the medical necessity criteria and we will have the air quality consultant physicians continue to follow. He does have the tolerance for therapies and has appropriate discharge goals back to the home setting. <ELECTRONICALLY SIGNED> By: Jonatan Mcclellan MD 06/01/19 1311 1223 [id number] Jonatan Mcclellan MD /[facility]
--- NOTE | 2019-06-01 13:11 | PLAN ---
[facility] [place] [address] REHAB UNIT PLAN OF CARE Name: BREANDRES CARPENTER Room #: 513-P ADM IN M.R.#: [id number] Admission: 05/25/19 Attend Phys: Andres Mcclellan MD Discharge: Date of : 54 Report #: [id number] THIS REPORT FOR: //name// CC: Andres Mcclellan DATE OF SERVICE: 05/27/2019 PROGRESS NOTE/OVERALL PLAN OF CARE The patient was seen back today in followup. He is in no distress. Temperature 98.1, pulse 103, respirations 18, blood pressure 134/73. No focal calf swelling. He is working in therapies with transfers at a contact guard assist level. He is ambulating 180 feet, 4-wheeled walker. For stairs are min assist. In occupational therapy, lower body dressing is moderate assistance. He does have kfiu-xn-kwdoketa comprehensive deficits. Adac-nb-zwtxvbnc cognitive deficits, moderate memory deficits. Physical therapy is working with him on balance issues. ASSESSMENT: 1. Gait ataxia. 2. Demyelinating disease ("burnt out," per Neurology). 3. History of falls. 4. Prior stroke with late effect. 5. Urinary retention, on Flomax. 6. Hypertension. 7. Dyslipidemia. 8. Obstructive sleep apnea. 9. Diabetes mellitus. PLAN: The overall plan of care is based on the preadmission screen, post-admission physician evaluation and information garnered from therapy assessments. 1. Estimated length of stay is probably 7-14 days pending progress. 2. Medical prognosis is reasonably good. 3. Anticipated interventions includes the interdisciplinary acute inpatient rehabilitation program. 4. Anticipated functional outcomes would be for the patient to become modified independent with transfers, mobility, ADLs, communication, cognition, so that he can return back to the home setting. Goal would be independent at a front-wheeled walker level. 5. Discharge destination will be back home with . 6. Expected therapy by discipline includes PT, OT and speech 1 hour per day [address] [address] REHAB UNIT PLAN OF CARE Name: ANDRES MYERS Room #: 513-P [facility] IN [facility]#: [id number] Admission: 05/25/19 Attend Phys: Andres Mcclellan MD Discharge: Date of : 54 Report #: [id number] each five days a week throughout the duration of the acute inpatient rehabilitation stay. <ELECTRONICALLY SIGNED> By: Andres Mcclellan MD 06/01/19 1311 0905 1817 Andres Mcclellan MD /nt
--- NOTE | 2019-06-01 19:11 | NUR ---
PATIENT STARTED ON CLAMP ON X 2 HOURS/ OFF X 2 HOURS. PATIENT HAD ONE URGE TO URINATE AT 3:30 PM. PATIENT OPEN TILL 5:30. RECLAMPED TILL 1930. NIGHTS WILL CONTINUE BLADDER TRAINING. WILL CONTINUE TO MONITER
--- NOTE | 2019-06-01 19:14 | NUR ---
1039 DR. BULL HERE TO SEE PATIENT. DR. BULL RECCOMMENDED NOT ADDING ANY ANTI- DEPRESSANTS AT THIS TIME. IT WILL ONLY MAKE HIS SLEEP ISSUES WORSE. PLEASE SEE HER NOTE. PATIENT TO SEE HIS SLEEP DOCTOR ON D/C Thursday06/06/19.
[2019-06-01 19:45] VITALS: BP 120/76
--- NOTE | 2019-06-02 03:01 | NUR ---
PT ASSESSMENT COMPLETED AND VSS. MEDS GIVEN ORDERED AND ORDERED AND WELL TOLERATED. FALL PRECAUTIONS IN PLACE. CLAMPING BENZ ORDERED ON AND OFF EVERY 2 HOURS. SLEEPING WELL. DENEIS NEEDS. WILL CONTINUE TO MONITOR FREQUENTLY.
[2019-06-02 05:44] LABS: BASOPHILS 0.4 % (0.0-2.0); EOSINOPHILS 2.5 % (0.0-3.0); HEMATOCRIT 36.8 % (42.0-52.0); HEMOGLOBIN 12.4 gm/dL (14.0-18.0); LYMPHOCYTES 22.4 % (24.0-44.0); MCH 29.9 pg (26.0-34.0); MCHC 33.8 g/dL (28.0-37.0); MCV 88.5 fL (80.0-100.0); MONOCYTES 9.5 % (1.0-8.0); PLATELET COUNT 162 thou/uL (150-400); POLYS 65.2 % (36.0-66.0); RBC 4.16 mil/uL (4.50-6.00); WBC 9.2 thou/uL (4.0-11.0)
[2019-06-02 06:10] LABS: CALCIUM 8.5 mg/dL (8.5-10.1); CREATININE 1.2 mg/dL (0.7-1.3); MAGNESIUM 1.2 mg/dL (1.8-2.4); POTASSIUM 3.9 mmol/L (3.5-5.1)
[2019-06-02 11:36] VITALS: BP 141/93
--- NOTE | 2019-06-02 12:05 | NUR ---
ALERT X3, WITH FORGETFULNESS, DENIES PAIN, ON BENZ TRAINING Q3HRS, NO URGENCY NOTED AT THIS TIME. PT DOES NOT ASK FOR MEDICATIONS PER REQUEST BY THERAPY. FALL PRECAUTIONS IN PLACE.
[2019-06-02 19:55] VITALS: BP 138/77
[2019-06-03 00:08] LABS: GLYCOHEMOGLOBIN (HGB A1C) 6.6 % (4.8-5.6)
--- NOTE | 2019-06-03 03:13 | NUR ---
ASSUMED CARE FROM DAY SHIFT DISCUSSED PLAN OF CARE AND VERBALIZED UNDERSTANDING, BENZ UNCLAMPED 600ML RETURNED CLEAR YELLOW URINE, PT RESTED WELL THROUGHOUT HOURLY ROUNDS, PT CONTINUE TO DENIES URGE TO VOID WHEN BENZ IS CLAMPED, WILL CONINTUE WITH CURRENT PLAN OF CARE, AND WILL REPORT CHANGES OR ABNORMAL FINDINGS.
[2019-06-03 08:51] VITALS: BP 103/61
--- NOTE | 2019-06-03 09:22 | NUR ---
Nutrition: Seen for early LOS. Admit: gait ataxia; demyelinating disease per provider notes w/ hx old CVA w/ residual L sided weakness, DM, HTN. Was on a regular diet up until this AM given well controlled BGs < 180mg/dl. During interview pt requested diabetic friendly meals wanting kitchen to stop sending juice, cookies, etc d/t known negative BG impact. Spoke w/ Hospitalist LIFE SKILLS EDUCATOR; diet now changed. On SSI, Metformin. BGs 95-176 mg/dl on 06/02. Averaging 90% of meals over 6 days. Only 1 day of low PO intake yesterday d/t focusing on increased fluid intake to help w/ catheter removal progress. Back to baseline today, working on eggs and sausage. Protein encouraged first in case early satiety returns w/ more fluid intake. Low nutrition risk, no further needs.
[2019-06-03 16:25] VITALS: BP 103/61
--- NOTE | 2019-06-03 16:34 | 2DMMODE ---
[facility] [address] [place] [address] 2 D/M-MODE ECHOCARDIOGRAM Name: JONATAN MYERS Room #: 513-P [facility] IN ..#: [id number] Admission: 05/25/19 Attend Phys: Jonatan Mcclellan, Discharge: Date of : 54 Report #: [id number] THIS REPORT FOR: //name// APPROVED REPORT Study performed: 06/03/2019 15:49:45 EXAM: Comprehensive 2D, Doppler, and color-flow Echocardiogram Patient Location: Echo lab Room #: 3 Status: routine BSA: 2.26 HR: 78 bpm BP: 103/61 mmHg Rhythm: NSR Other Information Study Quality: Adequate Indications Diabetes Hypertension/HDD 2D Dimensions RVDd: 33.27 mm IVSd: 16.65 (7-11mm) LVOT Diam: 22.97 (18-24mm) LVDd: 35.09 mm PWd: 11.80 (7-11mm) Ascending Ao: 35.01 (22-36mm) LVDs: 19.75 (25-40mm) Aortic Root: 33.82 mm IVC: 6.00 mm Volumes Left Atrial Volume (Systole) Single Plane 4CH: 30.35 mL Single Plane 2CH: 53.15 mL LA ESV Index: 20.00 mL/m2 Aortic Valve AoV Peak Missael.: 1.40 m/s AO Peak Gr.: 7.81 mmHg LVOT Max P.96 mmHg LVOT Max V: 0.86 m/s ELI Vmax: 2.55 cm2 Mitral Valve E/A Ratio: 0.8 MV Decel. Time: 332.11 ms [facility] [place] [address] [place] [address] 2 D/M-MODE ECHOCARDIOGRAM Name: BREJONATAN CARPENTER Room #: 513-P [facility] IN [facility]#: [id number] Admission: 05/25/19 Attend Phys: Jonatan Mcclellan, Discharge: Date of : 54 Report #: [id number] E Max Missael.: 0.84 m/s MV A Missael.: 1.12 m/s MV PHT: 96.31 ms IVRT: 128.03 ms Pulmonary Valve PV Peak Missael.: 0.93 m/s PV Peak Gr.: 3.52 mmHg Pulmonary Vein P Vein S: 0.74 m/s P Vein A: 0.26 m/s P Vein D: 0.34 m/s P Vein A Dur.: 134.9 msec P Vein S/D Ratio: 2.18 Tricuspid Valve RAP Estimate: 5.00 mmHg Left Ventricle The left ventricle is normal size. Mild basal septal hypertrophy is present. The left ventricular systolic function is normal. The left ventricular ejection fraction is within the normal range. LVEF is 60-65%. Mild diastolic dysfunction is present (impaired relaxation pattern). Right Ventricle The right ventricle is normal size. The right ventricular systolic function is normal. Atria The left atrium size is normal. The right atrium size is normal. Aortic Valve Mild aortic valve sclerosis. No aortic regurgitation is present. There is no aortic valvular stenosis. Mitral Valve Mild mitral annular calcification. Trace mitral regurgitation. No evidence of mitral valve stenosis. Tricuspid Valve The tricuspid valve is normal in structure. Trace tricuspid regurgitation. Unable to assess PA pressure. Pulmonic Valve The pulmonary valve is normal in structure. Trace pulmonic regurgitation. [facility] [place] [place] [address] 2 D/M-MODE ECHOCARDIOGRAM Name: JONATAN MYERS Room #: 513-P [facility] IN M.R.#: [id number] Admission: 05/25/19 Attend Phys: Jonatan Mcclellan, Discharge: Date of : 54 Report #: [id number] Great Vessels The aortic root is normal in size. IVC is normal in size and collapses >50% with inspiration. Pericardium There is no pericardial effusion. <Conclusion> The left ventricle is normal size. LVEF is 60-65%. Mild aortic valve sclerosis. Mild mitral annular calcification. Trace mitral regurgitation. The tricuspid valve is normal in structure. Trace tricuspid regurgitation. Unable to assess PA pressure. The pulmonary valve is normal in structure. Trace pulmonic regurgitation. There is no pericardial effusion. <ELECTRONICALLY SIGNED> By: Pilo Miguel MD 06/03/19 1634 1634 [id number] Pilo Miguel MD /INF
[2019-06-03 19:35] VITALS: BP 127/76
--- NOTE | 2019-06-04 03:38 | NUR ---
assumed care at approx 1900 evening 06/03. pt sitting up in recliner at change of shift. pt alert and oriented x4, appropriate, cooperative, and talkative. discussed lucio catheter with pt and pt somewhat frustrated regarding possibility of being discharged with catheter. much encouragment given to pt regarding this. pt took hs meds with no problems. appears to be sleeping soundly with hourly rounding checks. bed alarm on and call light in reach. will continue to monitor.
[2019-06-04 07:30] VITALS: BP 123/70
--- NOTE | 2019-06-04 18:34 | NUR ---
AAOX4 VERY PLEASANT AND COOPERATIVE. WORKS WELL WITH THERAPY. GOOD APPETITE FOR MEALS. BENZ TO DD CLEAR YELLOW URINE OUTPUT. DENIES PAIN.
[2019-06-04 19:41] VITALS: BP 139/78
--- NOTE | 2019-06-05 00:55 | NUR ---
assumed care approx 1900 evening 06/04. pt alert and oriented x4, appropriate, cooperative, and talkative. lucio to dd with dark yellow urine to bag. pt stated he had a busy day with therapy. pt took hs meds with water tolerating well. pt appears to be sleeping soundly with hourly rounding checks. bed alarm on and call light in reach. will continue to monitor.
[2019-06-05 08:20] VITALS: BP 146/83
--- NOTE | 2019-06-05 14:16 | NUR ---
ASSUMED CARE OF PT AT 0715. PT IS A&OX4. IS ON ROOM AIR. DENIES PAIN. BENZ IN PLACE. IS UP WITH 1 ASSIST, GB, WALKER. FALL PRECAUTIONS & HOURLY ROUNDING CONTINUED THIS SHIFT. LABS & VITALS REVIEWED. PT IS CURRENTLY SITTING UP IN BED TALKING TO FAMILY. CALL LIGHT WITHIN REACH. WILL CONTINUE TO MONITOR.
[2019-06-05 19:14] VITALS: BP 165/98
[2019-06-06 08:15] VITALS: BP 137/91
[2019-06-06] MEDS ORDERED: ATORVASTATIN CA10 MG PO ×3 (09:07→12:04)
[2019-06-06] MEDS ORDERED: FLOMAX0.4 MG PO ×3 (09:07→12:04)
[2019-06-06] MEDS ORDERED: TOPROL XL25 MG PO ×3 (09:07→12:04)
--- NOTE | 2019-06-06 12:16 | NUR ---
patient to dc today hh with [facility]. Dp sent discharge papers to [facility]
--- NOTE | 2019-06-06 12:40 | NUR ---
ASSUME PT CARE AT 0700. VSS ON RA. MORNING MEDS GIVEN. REPORTS SLEPT GOOD. DENIES PAIN. BS MONITOR. NO INSULIN GIVEN. METFORMIN GIVEN. PT DISCHARGE TODAY. LEG BAG OBTAINED GAVE TRAINNING TO PT AND HIS . MARIYA CAME AND WORKED ON DISCHARGE MEDS AND SENT ELECTRONIC ORDERS TO HIS PHARMACY. HARD SCRIPS FOR METOPROLO, LIPITOR AND FLOMAX GIVEN. REVIEWED DISCHARGE INSTRUCTION ABOUT MONITOR B/P, BS BID AND KEEP LOGS. ENCOURAGED PT TO TAKE MEDS AND FOLLOW UP WITH UROLOGIST, CARDIOLOGIS AND HIS OWN DOCTOR AT HOME. HAND OUT ON MEDICALS ISSUES FOR PT TO READ AT HOME. DISCHARGE SUMMARY/ H&P COPY MADE AND SENT WITH PT TO GIVE TO DOCTORS AT HIS APPOINTMENTS. BENZ BAG/LEG BAG SENT WITH PT. OFFERED SUPPORTIVE CARE. ANSWERED PT AND HIS 'S NEEDS AND CONCERNS. TRANSPORTATION CALLED. PT LEFT UNIT AND WITH ALL HIS BELONGINGS AT THIS MOMENT.
== END 2019-06-06 12:49 | disposition home health service (06) | DRG 60 ==
LOC: ENTRNSPT 06-06 12:29 → EDTRNSPTSTS 06-06 12:33
PROVIDERS: Nurse Practitioner; ADMIT Physical Medicine & Rehabilitation
DX: G37.8 Other specified demyelinating diseases of central nervous system (principal); R26.0 Ataxic gait; R33.9 Retention of urine, unspecified; I10 Essential (primary) hypertension; E78.5 Hyperlipidemia, unspecified; G47.33 Obstructive sleep apnea (adult) (pediatric); E11.9 Type 2 diabetes mellitus without complications; F01.50 Vascular dementia, unspecified severity, without behavioral disturbance, psychotic disturbance, mood disturbance, and anxiety; F41.1 Generalized anxiety disorder; M48.02 Spinal stenosis, cervical region; M48.061 Spinal stenosis, lumbar region without neurogenic claudication; I95.1 Orthostatic hypotension; F51.01 Primary insomnia; E83.42 Hypomagnesemia; I69.334 Monoplegia of upper limb following cerebral infarction affecting left non-dominant side; Z91.81 History of falling; Z23 Encounter for immunization
CPT/HCPCS: 10112